=== PATIENT | male | born 1940 | race Caucasian/White ===

== ENCOUNTER → 2017-07-06 | Outpatient (CLI) | payer OTHER, MEDICARE | LOC: FIMAGING 10:56 | PROVIDERS: ATTEND Neurological Surgery | DX: M41.85 Other forms of scoliosis, thoracolumbar region (principal); M47.892 Other spondylosis, cervical region; I70.0 Atherosclerosis of aorta ==

== ENCOUNTER → 2017-07-16 | Outpatient (CLI) | payer OTHER, MEDICARE | LOC: FIMAGING 07:47 | PROVIDERS: ATTEND Neurological Surgery | DX: M41.26 Other idiopathic scoliosis, lumbar region (principal); M53.87 Other specified dorsopathies, lumbosacral region; M48.07 Spinal stenosis, lumbosacral region ==

== ENCOUNTER → 2017-12-27 | Outpatient (CLI) | payer OTHER, MEDICARE | LOC: FIMAGING 13:08 | PROVIDERS: ATTEND Physician Assistant Surgical | DX: M41.9 Scoliosis, unspecified (principal) ==

== ENCOUNTER 2018-03-08 10:47 | Emergency (ER) | payer OTHER, MEDICARE ==
[2018-03-08] MEDS ORDERED: NS 1,000 ML IV ONE ×2 (11:37→12:35)
[2018-03-08 11:43] LABS: PLATELET COUNT 268 10^3/uL (150-400)
--- NOTE | 2018-03-08 11:59 | EDPHY ---
H & P Stated Complaint: diarrhea x 2w Time Seen by Provider: 03/08/18 11:25 HPI/ROS: CHIEF COMPLAINT: Diarrhea, generalized weakness HISTORY OF PRESENT ILLNESS: 77-year-old male with ulcerative colitis presents with diarrhea and generalized weakness. Onset of diarrhea 2-3 weeks ago. The diarrhea is watery, without blood. He was seen by his primary care physician 1 week ago and given a prescription for prednisone. He is on a tapering dose of prednisone and has had no relief and diarrhea. This morning he awoke with dizziness and increasing generalized weakness. Associated with a 7 lb weight loss. No fever, vomiting or abdominal pain. REVIEW OF SYSTEMS: complete 10 point ROS reviewed and is negative except for the noted elements in the HPI - Personal History Current Tetanus/Diphtheria Vaccine: Yes Current Tetanus Diphtheria and Acellular Pertussis (TDAP): Yes - Medical/Surgical History Hx Asthma: No Hx Chronic Respiratory Disease: No Hx Diabetes: No Hx Cardiac Disease: No Hx Renal Disease: No Hx Cirrhosis: No Hx Alcoholism: No Hx HIV/AIDS: No Hx Splenectomy or Spleen Trauma: No Other PMH: tonsilectomy,epilepsy, htn,pna 2001, prostate ca w/ prostatectomy, pmr, UC - Social History Smoking Status: Former smoker Alcohol Use: Sober Drug Use: None Additional Social History: - Physical Exam Exam: General Appearance: Alert, pleasant and smiling Eyes: Pupils equal and round, no conjunctival pallor ENT, Mouth: Mucous membranes slightly dry Neck: Normal inspection Respiratory: Lungs are clear to auscultation Cardiovascular: Regular rate and rhythm Gastrointestinal: Abdomen is soft and nontender Neurological: A&O, nonfocal exam Skin: Warm and dry, no rash Extremities: Nontender, no pedal edema Psychiatric: Mood and affect normal Constitutional: Initial Vital Signs Temperature (C) 36.5 C 03/08/18 10:54 Heart Rate 88 03/08/18 10:54 Respiratory Rate 16 03/08/18 10:54 Blood Pressure 142/91 H 03/08/18 10:54 O2 Sat (%) 96 03/08/18 10:54 O2 Delivery Mode Room Air Allergies/Adverse Reactions: CBD oil Allergy (Uncoded 03/08/18 10:54) Home Medications: Medication Instructions Recorded Lisinopril [Zestril 20 mg (*)] 11/02/11 Phenytoin Sodium Extended 400 mg 11/02/11 [Dilantin] predniSONE 03/01/14 Aspirin EC 81 mg (*) 03/08/18 Neurontin 03/08/18 Medical Decision Making ED Course/Re-evaluation: This patient presents with persistent diarrhea and dehydration. IV normal saline 1 L given. He previously submitted a stool sample to the [facility] laboratory, but there is no documentation of a stool sample. A GI pathogen panel was ordered. Differential Diagnosis: Differential diagnosis includes though it is not limited to appendicitis, cholecystitis, diverticulitis, pyelonephritis, bowel perforation, small bowel obstruction. - Data Points Laboratory Results: Laboratory Results 03/08/18 11:12 03/08/18 11:12 03/08/18 03/08/18 11:12 11:12 WBC 7.46 10^3/uL 10^3/uL (3.80-9.50) RBC 4.29 10^6/uL L 10^6/uL (4.40-6.38) Hgb 14.4 g/dL g/dL (13.7-17.5) Hct 42.7 % % (40.0-51.0) MCV 99.5 fL fL (81.5-99.8) MCH 33.6 pg pg (27.9-34.1) MCHC 33.7 g/dL g/dL (32.4-36.7) RDW 12.5 % % (11.5-15.2) Plt Count 268 10^3/uL 10^3/uL (150-400) MPV 9.6 fL fL (8.7-11.7) Neut % (Auto) 64.8 % % (39.3-74.2) Lymph % (Auto) 20.6 % % (15.0-45.0) Wirt % (Auto) 12.7 % % (4.5-13.0) Eos % (Auto) 0.8 % % (0.6-7.6) Baso % (Auto) 0.7 % % (0.3-1.7) Nucleat RBC Rel Count 0.0 % % (0.0-0.2) Absolute Neuts (auto) 4.83 10^3/uL 10^3/uL (1.70-6.50) Absolute Lymphs (auto) 1.54 10^3/uL 10^3/uL (1.00-3.00) Absolute Monos (auto) 0.95 10^3/uL H 10^3/uL (0.30-0.80) Absolute Eos (auto) 0.06 10^3/uL 10^3/uL (0.03-0.40) Absolute Basos (auto) 0.05 10^3/uL 10^3/uL (0.02-0.10) Absolute Nucleated RBC 0.00 10^3/uL 10^3/uL (0-0.01) Immature Gran % 0.4 % % (0.0-1.1) Immature Gran # 0.03 10^3/uL 10^3/uL (0.00-0.10) Sodium 140 mEq/L mEq/L (135-145) Potassium 4.1 mEq/L mEq/L (3.5-5.2) Chloride 106 mEq/L mEq/L (97-110) Carbon Dioxide 25 mEq/l mEq/l (22-31) Anion Gap 9 mEq/L mEq/L (6-14) BUN 25 mg/dL H mg/dL (7-23) Creatinine 1.0 mg/dL mg/dL (0.7-1.3) Estimated GFR > 60 Glucose 107 mg/dL H mg/dL (70-100) Calcium 9.4 mg/dL mg/dL (8.5-10.4) Total Bilirubin 0.4 mg/dL mg/dL (0.1-1.4) Conjugated Bilirubin 0.2 mg/dL mg/dL (0.0-0.5) Unconjugated Bilirubin 0.2 mg/dL mg/dL (0.0-1.1) AST 22 IU/L IU/L (17-59) ALT 21 IU/L IU/L (21-72) Alkaline Phosphatase 83 IU/L IU/L (38-126) Total Protein 7.0 g/dL g/dL (6.3-8.2) Albumin 4.2 g/dL g/dL (3.5-5.0) Lipase 126 IU/L IU/L (23-300) Medications Given: Discontinued Medications Sodium Chloride (Ns) 1,000 mls @ 0 mls/hr IV EDNOW ONE; Wide Open PRN Reason: Protocol Stop: 03/08/18 11:38 Last Admin: 03/08/18 11:44 Dose: 1,000 mls Sodium Chloride (Ns) 1,000 mls @ 0 mls/hr IV ONCE ONE; Wide Open PRN Reason: Protocol Stop: 03/08/18 12:36 Last Admin: 03/08/18 13:01 Dose: 1,000 mls Departure - Departure Disposition: Home, Routine, Self-Care Clinical Impression: Diarrhea Qualifiers: Diarrhea type: unspecified type Qualified Code(s): R19.7 - Diarrhea, unspecified Condition: Good Instructions: Acute Diarrhea (ED) Additional Instructions: 1. Drink plenty of fluids. 2. Take Imodium as needed for diarrhea as directed on the packaging. 3. Continue prednisone. 4. Call to make an appointment with Dr. Guidry and with Dr. Haines. 5. Return with worsening symptoms or any concerns. 6. Return a stool sample to the [facility] lab. Call the ED in 6 hr after you turn in the stool sample for the results. Referrals: Phu Guidry MD [[facility] [place] Primary Care Provider] - As per Instructions Deonte Haines MD, FACG [Medical Doctor] - As per Instructions
[2018-03-08 14:45] VITALS: BP 140/85
== END 2018-03-08 14:44 | disposition home or self-care (01) ==
DX: R19.7 Diarrhea, unspecified (principal); E86.9 Volume depletion, unspecified; R53.1 Weakness; K51.90 Ulcerative colitis, unspecified, without complications; I10 Essential (primary) hypertension; G40.909 Epilepsy, unspecified, not intractable, without status epilepticus; Z85.46 Personal history of malignant neoplasm of prostate; Z87.891 Personal history of nicotine dependence

== ENCOUNTER → 2018-04-18 | Outpatient (CLI) | payer OTHER, MEDICARE | LOC: BMCIMAGING 12:25 | PROVIDERS: ATTEND Family Medicine | DX: S99.922A Unspecified injury of left foot, initial encounter (principal); W18.40XA Slipping, tripping and stumbling without falling, unspecified, initial encounter ==